=== PATIENT | male | born 1970 | race Caucasian/White ===

== ENCOUNTER 2017-11-25 11:58 | Emergency (ER) | END 2017-11-25 15:46 | disposition home or self-care (01) ==

== ENCOUNTER 2017-11-27 09:30 | Emergency (ER) | END 2017-11-27 10:58 | disposition home or self-care (01) ==

== ENCOUNTER 2017-12-04 08:53 | Emergency (ER) | END 2017-12-04 09:49 | disposition home or self-care (01) ==

== ENCOUNTER 2018-05-09 06:45 | Emergency (ER) | END 2018-05-09 08:41 | disposition home or self-care (01) ==